=== PATIENT | female | born 1990 | race Caucasian/White ===

== ENCOUNTER 2024-03-28 15:23 | Emergency (ER) | payer OTHER, SELFPAY ==
[2024-03-28 15:27] VITALS: BP 116/85
[2024-03-28 15:55] VITALS: BMI 23.3
--- NOTE | 2024-03-28 16:28 | ED.GENMED ---
History of Present Illness
General
Chief Complaint: Head Injury
Source: patient
Time Seen by Provider: 03/28/24 16:17
Travel History
Have you had any contact with someone who has COVID-19?: No
Do you have any symptoms of coronavirus? Fever > 100 degrees, chills, cough, shortness of breath, sore throat, loss of taste or smell, muscle aches, or headache?: No
History of Present Illness
History of Present Illness:
33-year-old female presenting to the emergency department for evaluation after she had a vertigo attack earlier this morning, started to feel lightheaded and nauseous so she went to go sit down but then syncopized striking the front of her head onto
the ground and who witnessed this stated she was out for probably around 1 minute. Patient has a small right frontal forehead hematoma. She notes that she has been seen by ENT and neurology and has had multiple workups without any results
as to why she has the vertigo. Patient states at present time she is asymptomatic. She is most concerned about the head injury. She denies any vomiting preceding or following the syncope. No chest pain, shortness of breath, palpitations or any
other concerns. Patient does note that over the weekend she maybe had a little upper respiratory infection but that this is now resolved. She also notes that she was recently on her menstrual and may be there could be some anemia causing her
symptoms.
Past History
Past History
ED Past Medical History: None
ED Past Surgical History: None
Social History
Tobacco: Non-smoker
Alcohol: None
Drug: None
Personal:
Living: with family
Review of Systems
Review of Systems
All Other Systems: ROS reviewed and negative except as documented in HPI and ROS
Phy Exam
Physical Exam
Physical Exam:
GENERAL: Alert , in no apparent distress
HEAD: right frontal forehead hematoma
EYE: conjunctiva clear, pupils 4mm b/l, EOMI
NECK: Supple, no significant adenopathy.
ENT: o/p clr, mmm. no dental injuries
CARDIAC: Regular rate and rhythm, no murmur
LUNGS: Clear breath sounds bilaterally, no acute respiratory distress, no wheezes/rales/rhonchi
NEUROLOGICAL: Alert and oriented
SKIN: Warm and dry, skin intact.
MUSCULOSKELETAL: well perfused.
PSYCH: Normal and appropriate interaction.
Scores
Heart Failure Risk
Heart Failure Risk Score: Not Applicable
Heart Score for Chest Pain Patients
STEMI patient?: Not applicable
Withdrawal Assessment of Alcohol
Withdrawal Assessment Completed?: Not applicable
Course
Orders/Labs/Results
Orders:
Orders
03/28/24 16:23
Electrocardiogram (*1) Urgent
Reason for Study: Syncope
EKG- Treatment ONCE
Test Result ONCE
03/28/24 16:24
CT Head W/o Iv Contrast Urgent
Comment:
Reason For Exam: syncope, right sided frontal hematoma
03/28/24 16:29
Basic Metabolic Panel Urgent
Complete Blood Count/With Diff Urgent
HCG, Serum Qualitative Screen Urgent
Abnormal Lab Results
03/28/24
16:29
Absolute Monos (auto) 1.0 H 10^3/uL
(0.1-0.6)
Lymphocytes % 18.2 L %
(20.5-51.1)
Monocytes % 14.4 H %
(1.7-9.3)
Glucose 115 H mg/dl
(70-99)
03/28/24 16:29
03/28/24 16:29
Vital Signs
Initial and Last Documented VS:
Initial Vital Signs
Temp Pulse Resp BP Pulse Ox
99.1 F 85 18 116/85 99
03/28/24 15:27 03/28/24 15:27 03/28/24 15:27 03/28/24 15:27 03/28/24 15:27
Last Documented Vital Signs
Temp Pulse Resp BP Pulse Ox
99.1 F 83 18 115/80 99
03/28/24 15:27 03/28/24 17:38 03/28/24 17:38 03/28/24 17:38 03/28/24 17:38
MDM/Problems Addressed
Differential Diagnosis Includes:
Peripheral vertigo, vasovagal syncope, orthostasis, cardiac dysrhythmia, valvular dysfunction, electrolyte disturbance, anemia
MDM/Problems Addressed:
33-year-old female presenting emergency department for evaluation following a vertigo attack that caused patient to syncopized. This resulted in right frontal forehead hematoma. Overall I do not have any suspicion for emergent pathologies however
given the injury patient would like to proceed with CT imaging. Will obtain an EKG to rule out any ectopy or interval abnormalities. Labs ordered to evaluate for any electrolyte disturbance or anemia.
*Radiology
Radiology exam reviewed: radiology read reviewed
*Pulse Oximetry
Patient hypoxic: no
*EKG
Interpreted by ED Provider?: Yes
Comparison EKG: no comparison EKG present
Heart Rate: 75
Rate: normal
Rhythm: sinus
[place]: normal axis
Ischemia: no ischemia
*Critical Care Note
Total Time (30-74mins, 75-104mins- exclusive of procedures): Not Applicable
Patient Management
Escalation/DeEscalation of care consider admission/obs:
Patient's workup is unremarkable for any acute pathology. She is ultimately stable for discharge home and outpatient management. Aware of return precautions. 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
ED Attending Note
-
Portions of this chart may have been created with voice recognition software.� Occasional wrong word or��sound alike� substitutions may have occurred due to the inherent limitations of voice recognition software.
Discharge Plan
Departure
Patient Disposition: Home (Routine Discharge)
Date of Disposition: 03/28/24
Time of Disposition: 17:33
Patient with high blood pressure during this ER visit?: No
Discharge Problem:
Syncope, Forehead contusion
Instructions: Syncope (Fainting) (DC)
Prescriptions:
No Action
escitalopram oxalate [Lexapro] 5 mg Tablet
5 mg PO DAILY
Vitamin
1 tab PO DAILY
acetaminophen 325 mg Tablet
650 mg PO Q4HPRN PRN (Reason: mild pain) Qty: 30 0RF
ibuprofen 600 mg Tablet
600 mg PO Q6HPRN PRN (Reason: moderate pain/cramps) Qty: 30 0RF
Referrals:
Matt Pierre MD [Active] - (Cardiology)
Zoya Jeff PA-C [Family Provider] -
Interventions
Interventions:
*Risk Screen - Suicide Last Done: 03/28/24 15:27
*General Assessment Last Done: 03/28/24 15:27
*Neglect/Abuse Screening Last Done: 03/28/24 15:27
ED- Fall Risk Assessment Last Done: 03/28/24 15:55
*ED COVID-19 Vaccine History Last Done: 03/28/24 15:31
*Nursing Disposition Last Done: 03/28/24 17:39
ED- Neurological Assessment Last Done: 03/28/24 15:55
ED-Skin Assessment Last Done: 03/28/24 15:55
Discharge Date and Time
Discharge Date/Time: 03/28/24 17:40
Print Language: YI
[2024-03-28 16:45] LABS: % Basophils 0.5 % (0-2); % Eosinophils 1.1 % (0-6); % Immature Granulocytes 0.3 % (0-0.5); % Lymphocytes 18.2 % (20.5-51.1); % Monocytes 14.4 % (1.7-9.3); % Neutrophils 65.5 % (42.2-75.2); Absolute Eosinophils 0.1 10^3/uL (0-0.7); Absolute Lymphocytes 1.2 10^3/uL (1.2-3.4); Absolute Neutrophils 4.3 10^3/uL (1.4-6.5); Hematocrit 37.4 % (37.0-47.0); Hemoglobin 12.4 g/dL (12.0-16.0); Mean Corp Hgb Conc. 33.2 g/dL (33.0-37.0); Mean Corpuscular Hgb 28.5 pg (27.0-31.0); Mean Platelet Volume 10.4 fL (7.4-10.4); Nucleated Red Blood Cells % 0 %; Platelet Count 191 10^3/uL (130-400); Red Blood Cell Count 4.35 10^6/uL (4.20-5.40); Red Cell Dist. Width 11.9 % (11.5-14.5); White Blood Cell Count 6.6 10^3/uL (4.8-10.8)
[2024-03-28 16:54] LABS: HCG, Serum Qualitative Screen Negative
[2024-03-28 16:58] LABS: Blood Urea Nitrogen 14 mg/dl (7-17); Calcium 9.3 mg/dl (8.4-10.2); Carbon Dioxide 27 mmol/L (22-30); Chloride 102 mmol/L (98-107); Estimated Creatinine Clearance 107 ml/min; Glucose 115 mg/dl (70-99); Potassium 3.8 mmol/L (3.5-5.1); Sodium 138 mmol/L (135-145); eGFR > 60.00
[2024-03-28 17:38] VITALS: BP 115/80
== END 2024-03-28 17:40 | disposition home or self-care (01) ==
LOC: EMR 15:23
PROVIDERS: Physician Assistant Medical; EMERGENCY PHYSICIAN Emergency Medicine; FAMILY PHYSICIAN Physician Assistant Medical
DX: R55 Syncope and collapse (principal); S00.83XA Contusion of other part of head, initial encounter; W18.39XA Other fall on same level, initial encounter; S09.90XA Unspecified injury of head, initial encounter; D64.9 Anemia, unspecified
CPT/HCPCS: 99284; 70450; 80048; 84703; 85025; 93005

== ENCOUNTER → 2024-05-02 19:40 | Outpatient (REF) | payer OTHER, SELFPAY | LOC: MRI 3T 19:40 | PROVIDERS: ATTENDING PHYSICIAN Physician Assistant Medical | DX: R55 Syncope and collapse (principal) | CPT/HCPCS: 70553; A9575 ==

== ENCOUNTER → 2024-05-24 08:25 | Outpatient (REF) | payer OTHER, SELFPAY | LOC: HWRCS 08:25 | PROVIDERS: ATTENDING PHYSICIAN Internal Medicine Cardiovascular Disease; FAMILY PHYSICIAN Physician Assistant Medical | DX: R55 Syncope and collapse (principal) | CPT/HCPCS: 93306 ==

== ENCOUNTER → 2024-12-15 11:27 | Outpatient (REF) | payer OTHER, SELFPAY ==
--- NOTE | 2024-12-15 17:47 | EEGC.RPT ---
Continuous EEG Report
Recording
Start Date of Data Reviewed: 12/15/24
Done with Video Recording: Yes
Electrocardiogram: Unremarkable
Report
TECHNICAL REMARKS:��This is a technically satisfactory eighteen channel record employing 21 disc electrodes applied according to a measured international 10-20 electrode placement system.��There were no significant technical difficulties.��The study
was done on a [employer] System.
�
CLINICAL HISTORY:�This is a 34 year old woman with vertigo and syncope. This study was requested to look for epileptiform abnormalities.
MEDICATIONS: no AED
STUDY DURATION: 41 min, 42 sec
�
REPORT: �At the onset of the EEG, the patient is awake. The background activity consists of 10-10.5 Hz, persistent, posteriorly dominant, moderate in amplitude, symmetric, and rhythmic activity that is reactive to eye-opening with admixed 10-15
microvolts delta activity.� Anteriorly, it consists of a mixture of symmetric and rhythmic 5-10 microvolts, 15-20 beta activity, as well as central 6-7 Hz 10-20 microvolts theta activity. Intermittent generalized 5-6 Hz 10-20 microvolts activity
lasting for 1-3 seconds is present. Stepwise intermittent photic stimulation (1-31 Hz) did not induce any additional abnormalities. Hyperventilation was not performed. Drowsiness is characterized by low amplitude mixed frequency activity,
decreased eye blinking, and muscle artifact.
�
IMPRESSION: �This is an abnormal awake and drowsy EEG due to a mild generalized slowing. This finding indicates a mild encephalopathy that is not specific to etiology.� No epileptiform activity was seen.� If the clinical picture warrants, a
sleep-deprived awake and sleep record may be helpful.
== END ==
LOC: EEG 11:27
PROVIDERS: ATTENDING PHYSICIAN Psychiatry & Neurology Neurology; FAMILY PHYSICIAN Physician Assistant Medical
DX: R55 Syncope and collapse (principal)
CPT/HCPCS: 95812

== ENCOUNTER → 2025-02-28 08:18 | Outpatient (REF) | payer OTHER, SELFPAY | LOC: HWRAD 08:18 | PROVIDERS: ATTENDING PHYSICIAN Student in an Organized Health Care Education/Training Program; FAMILY PHYSICIAN Physician Assistant Medical | DX: Z30.431 Encounter for routine checking of intrauterine contraceptive device (principal) | CPT/HCPCS: 76830; 76856 ==

== ENCOUNTER → 2025-06-14 10:06 | Outpatient (REF) | payer OTHER, SELFPAY | LOC: WDC 10:06 | PROVIDERS: ATTENDING PHYSICIAN Student in an Organized Health Care Education/Training Program; FAMILY PHYSICIAN Physician Assistant Medical | DX: N63.10 Unspecified lump in the right breast, unspecified quadrant (principal) | CPT/HCPCS: 76642; 77062; 77066 ==